=== PATIENT | male | born 1935 | race Caucasian/White ===

== ENCOUNTER → 2016-11-25 | Outpatient (CLI) | payer MEDICARE, BC ==
[~2016-11-25] MED LIST: AMOXICILLIN/CLA1 TA2 PO; BAYER ASPIRIN C81 MG PO; CARVEDILOL6.25 MG PO; CILOSTAZOL100 MG PO; LEVOFLOXACIN500 MG PO; LORTAB 5/500 501 TAB PO; ZOFRAN ODT4 MG PO
--- NOTE | 2016-11-25 13:53 | RADIOLOGY REPORT PS360 ---
CHEST(2 VIEWS-NOT PORTABLE) HISTORY: ABNORMAL BREATH SOUNDS ORDERING PHYSICIAN: Orion Scott MD PATIENT AGE: 81 years COMPARISON: 07/10/2012 FINDINGS: The cardiomediastinal silhouette and pulmonary vascularity are within normal limits. Coronary artery calcification and/or stent noted There are edematous changes. No lobar consolidation or collapse is evident.. Degenerative changes are present in the thoracic spine.. IMPRESSION: COPD with chronic changes, no acute finding
== END ==
LOC: RAD 12:55
DX: R06.89 Other abnormalities of breathing (principal)